=== PATIENT | male | born 1995 | race African-American/Black ===

== ENCOUNTER 2018-04-19 23:17 | Emergency (ER) | payer SELFPAY ==
[~2018-04-19] VITALS: Ht 188 cm; Wt 113.4 kg
[2018-04-19 23:19] VITALS: BP 124/83
[2018-04-20] MEDS: predniSONE 20 MG TAB PO ONE (00:23)
[2018-04-20 00:45] VITALS: BP 122/80
== END 2018-04-20 00:45 | disposition home or self-care (01) ==
LOC: MED 23:17
DX: J45.901 Unspecified asthma with (acute) exacerbation (principal)
CPT/HCPCS: 71045; 99283; J7512; Q0092